=== PATIENT | male | born 1975 | race Caucasian/White ===

== ENCOUNTER 2021-09-07 01:28 | Outpatient (CLI) | payer MEDICAID, SELFPAY ==
[2021-09-07 08:00] LABS: Hemoglobin A1C 5.6 % (<5.7)
[2021-09-07 08:37] LABS: Calculated LDL 108 mg/dL (<100); Cholesterol 173 mg/dL (<200); HDL Cholesterol 51 mg/dL (40-60); Triglyceride 73 mg/dL (<150)
[2021-09-07 18:10] LABS: PSA, Screening 1.3 ng/mL (0.0-2.5)
== END 2021-09-07 01:29 | disposition home or self-care (01) ==
LOC: LBO 01:28
PROVIDERS: PCP Family Medicine; Visit Provider Family Medicine
DX: E78.5 Hyperlipidemia, unspecified (principal); R73.9 Hyperglycemia, unspecified; Z12.5 Encounter for screening for malignant neoplasm of prostate
CPT/HCPCS: 36415; 80061; 84153; 83036

== ENCOUNTER 2021-10-05 13:34 | Outpatient (CLI) | payer MEDICAID, SELFPAY ==
--- NOTE | 2021-10-05 13:15 | DI.RAD_ITS ---
Exam(s) XR SHOULDER LT COMPLETE 2+V EXAM: XR SHOULDER LT COMPLETE 2+V CLINICAL HISTORY: LEFT SHOULDER PAIN. TECHNIQUE: 2D digital imaging was performed of the left shoulder. Two images were obtained. AP and axillary views were obtained. COMPARISON: No exams were available for comparison FINDINGS: BONES: No acute fracture is present. No bony destructive lesion is seen. JOINTS: No dislocation present. Mild degenerative changes are seen at the acromioclavicular joint. SOFT TISSUE: Normal. 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 DATA REPOSITORY: RADIATION DOSE DELIVERED:
--- NOTE | 2021-10-05 13:15 | DI.RAD_ITS ---
Exam(s) XR SHOULDER RT COMPLETE 2+V EXAM: XR SHOULDER RT COMPLETE 2+V CLINICAL HISTORY: RIGHT SHOULDER PAIN. TECHNIQUE: 2D digital imaging was performed of the right shoulder. Two images were obtained. AP an d axillary views were obtained. COMPARISON: No exams were available for comparison FINDINGS: BONES: No acute fracture is present. No bony destructive lesion is seen. JOINTS: No dislocation present. Mild degenerative changes of the right AC joint. SOFT TISSUE: Normal. IMPRESSION: Mild DJD of the right AC joint. DATA REPOSITORY: RADIATION DOSE DELIVERED:
== END 2021-10-05 13:35 | disposition home or self-care (01) ==
LOC: DIORS 13:34
PROVIDERS: PCP Family Medicine; Referring Provider Family Medicine; Visit Provider Student in an Organized Health Care Education/Training Program
DX: M25.511 Pain in right shoulder (principal); M25.512 Pain in left shoulder; M19.011 Primary osteoarthritis, right shoulder; M19.012 Primary osteoarthritis, left shoulder
CPT/HCPCS: 73030

== ENCOUNTER 2022-08-17 01:05 | Outpatient (CLI) | payer MEDICAID, SELFPAY ==
--- NOTE | 2022-08-17 11:18 | DI.US_ITS ---
APPROVED REPORT EXAM: Comprehensive 2D, Doppler, and color-flow Echocardiogram Patient Location: Out-Patient Wire Spring Relay Adjuster: Maddy Garcia RDCS (AE) Indications: Heart murmur, HTN, Smoker Other Information Study Quality: Adequate Conclusion Normal left ventricular wall thickness and chamber size. Estimated ejection fraction is 60%. Wall m otion is normal Normal right ventricular size and systolic function Both atria are normal in size There is no structural or hemodynamically significant valvular disease Estimated right ventricular systolic pressure is 21 mmHg Mildly dilated ascending aorta measuring 3.68 cm Wall motion Left Ventricle The left ventricle is normal size. The left ventricular systolic function is normal. The left ventric ular ejection fraction is within the normal range. There is normal left ventricular wall thickness. T here is normal LV segmental wall motion. There is no ventricular septal defect visualized. LVEF is 60 %. Right Ventricle The right ventricle is normal size. The right ventricular systolic function is normal. The RVSP is 21 .1 mmHg. Atria The left atrium size is normal. The right atrium size is normal. The interatrial septum is intact wit h no evidence for an atrial septal defect. Aortic Valve The aortic valve is normal in structure. Aortic valve is trileaflet. There is no aortic valvular sten osis. No aortic regurgitation is present. Mitral Valve The mitral valve is normal in structure. No evidence of mitral valve stenosis. Trace mitral regurgita tion. Tricuspid Valve The tricuspid valve is normal in structure. There is no tricuspid valve stenosis. Trace tricuspid reg urgitation. Pulmonic Valve The pulmonary valve is normal in structure. There is no pulmonic valvular stenosis. Trace pulmonic re gurgitation. Great Vessels The aortic root is normal in size. The ascending aorta is mildly dilated. The ascending aorta is bor derline dilated. IVC is normal in size and collapses >50% with inspiration. Pericardium There is no pericardial effusion. 2D Dimensions IVSD d PLAX 0.96 cm M: 0.6-1.2 LV Vol A2C d MOD 142.0 mL LVPW d PLAX 0.95 cm M: 0.6 - 1.2 LV Vol A4C d MOD 148.8 mL LVID d PLAX 5.54 cm M: 4.2 - 5.8 LA vol/ BSA A2C s A-L 25.4 mL/m2 LVDs 3.60 cm M: 2.5 - 4.0 LA vol/ BSA A4C s A-L 16.9 mL/m2 Ao Root d 3.32 cm M: 3.1 - 3.7 LA Vol/ BSA Biplane s A-L 21.1 mL/m2 RA Area A4C 14.91 cm2 LA Area A4C s MOD 15.55 cm2 RA Vol/ BSA A4C s A-L 18.2 mL/m2 LA Area A2C s MOD 18.70 cm2 Ao Asc Diam d 3.68 cm M: 2.6 - 3.4 LV EF A4C MOD 60.7 % LV EF Teichholz 62.9 % LV EF A2C MOD 60.5 % LVEF ([employer]) 61.34 % M: 52 - 72 LV EF Biplane MOD 61.3 % LV Volume 108.56 mL M: 62 - 150 SV 90.92 mL LV Volume Index 50.49 mL/m2 M: 34 - 74 SV Index 42.27 mL/m2 LV Vol Biplane MOD 148.2 mL FS 34.45 % M-Mode TAPSE 2.48 cm (M/F) >1.7 LV Diastology MV E' medial 0.125 (>0.07 m/s) E/A Ratio 1.2 LV E/e MED 7.50 (<14) MV E Vmax 0.94 (0.4-1.3 m/s) MV E' lateral 0.142 (>0.1 m/s) MV A Vmax 0.80 (0.4-1.3 m/s) LV E/e LAT 6.60 (<14) MV E/A Ratio 1.14 MV E/E' medial 7.52 MV E/E' lateral 6.61 Aortic Valve LVOT Area 3.14 cm2 AoV Area Vmax 2.40 cm2 LVOT Vmax 1.57 m/s AoV Area/ BSA (Vmax) 1.12 cm2/m2 LVOT Mean Baldev. 1.04 m/s RASTA Mean Baldev. 2.32 cm2 LVOT Peak Grad 9.9 mmHg RASTA Mean Baldev. Index 1.08 cm2/m2 LVOT Mean Grad 5.1 mmHg LVOT VTI 0.336 m LVOT Diam s 1.95 cm AoV Vmax 2.05 m/s Velocity Ratio 0.77 AoV Mean Baldev. 1.41 m/s AoV Peak Grad 16.9 mmHg LVOT SV 105.56 mL AoV Mean Grad 9.0 mmHg AoV VTI 0.389 m AoV Area VTI 2.71 cm2 AoV Area/ BSA (VTI) 1.26 cm/m2 Mitral Valve MV DT 221 (160-240 msec) MV PHT 64 msec MV Area PHT 3.43 cm2 MV VTI 0.290 m MV Area VTI 3.64 (4.0-6.0 cm2) Pulmonary Valve PV Vmax 1.33 (0.5-1.5 m/s) RVOT Peak Gr. 3.26 mmHg PV Peak Grad 7.1 mmHg RVOT Mean Gr. 1.80 mmHg PV Mean Grad 3.6 mmHg RVOT VTI 0.193 m PV VTI 0.271 m RVOT Vmax 0.90 m/s Tricuspid Valve TR Peak Grad 18.0 mmHg TR Vmax 2.13 m/s RA Pressure 3.00 mmHg RVSP (TR) 21.1 mmHg
== END 2022-08-17 01:25 ==
LOC: DI 01:05
PROVIDERS: PCP Family Medicine; Visit Provider Surgery
DX: I10 Essential (primary) hypertension (principal); R01.1 Cardiac murmur, unspecified; Z87.891 Personal history of nicotine dependence
CPT/HCPCS: 93306

== ENCOUNTER 2023-02-03 16:50 | Outpatient (CLI) | payer MEDICAID, SELFPAY ==
[2023-02-03 10:22] LABS: Hemoglobin A1C 5.8 % (<5.7)
[2023-02-03 10:36] LABS: Anion Gap 9.1 mmol/L (3-11); BUN 12 mg/dL (7-18); CO2 28.9 mmol/L (21.0-32.0); CREATININE 0.9 mg/dL (0.70-1.30); Chloride 102 mmol/L (98-107); Estimated GFR 105.35 (mL/min/1.73m2); Glucose 139 mg/dL (74-106); Potassium 3.7 mmol/L (3.5-5.1); Sodium 140 mmol/L (136-145)
== END 2023-02-03 16:51 | disposition home or self-care (01) ==
LOC: LBO 16:51
PROVIDERS: PCP Family Medicine; Visit Provider Family Medicine
DX: I10 Essential (primary) hypertension (principal); E87.1 Hypo-osmolality and hyponatremia; R73.9 Hyperglycemia, unspecified; Z12.5 Encounter for screening for malignant neoplasm of prostate; E66.3 Overweight
CPT/HCPCS: 36415; 80048; 84153; 83036

== ENCOUNTER 2023-09-19 08:50 | Outpatient (CLI) | payer MEDICAID, SELFPAY ==
[2023-09-19 12:27] LABS: Anion Gap 9.8 mmol/L (3-11); BUN 14 mg/dL (7-18); CO2 27.2 mmol/L (21.0-32.0); CREATININE 0.8 mg/dL (0.70-1.30); Calcium 9.2 mg/dL (8.5-10.1); Chloride 102 mmol/L (98-107); Estimated GFR 109.17 (mL/min/1.73m2); Glucose 135 mg/dL (74-106); Potassium 3.6 mmol/L (3.5-5.1); Sodium 139 mmol/L (136-145)
[2023-09-19 19:14] LABS: HIV-1/2 Ag & Ab Screen Negative (Negative)
[2023-09-19 20:44] LABS: Hepatitis C Ab w Rflx HCV PCR Negative (Negative)
== END 2023-09-19 08:51 | disposition home or self-care (01) ==
LOC: LOS 08:51
PROVIDERS: PCP Family Medicine; Referring Provider Family Medicine; Visit Provider Family Medicine
DX: E11.51 Type 2 diabetes mellitus with diabetic peripheral angiopathy without gangrene (principal); Z11.59 Encounter for screening for other viral diseases; Z00.00 Encounter for general adult medical examination without abnormal findings; E87.1 Hypo-osmolality and hyponatremia
CPT/HCPCS: 36415; 80048; 86803; 87389; 83036

== ENCOUNTER → 2023-10-06 00:30 | Outpatient (CLI) | payer MEDICAID, SELFPAY ==
--- NOTE | 2023-10-06 07:00 | DI.US_ITS ---
APPROVED REPORT EXAM: Comprehensive 2D, Doppler, and color-flow Echocardiogram Patient Location: Out-Patient Starch Crab: Maddy Garcia RDCS (AE) Indications: Reassess dilated ascending aorta Other Information Study Quality: Adequate Conclusion Normal left ventricular wall thickness and chamber size EF is 60 %. Wall motion is normal Normal right ventricular size and function Both atria are normal in size There is no structural or hemodynamically significant valvular disease Mildly dilated ascending aorta, 3.76 cm. Previous measurement was 3.68 cm in 2022 Wall motion Left Ventricle The left ventricle is normal size. The left ventricular systolic function is normal. The left ventric ular ejection fraction is within the normal range. There is normal left ventricular wall thickness. T here is normal LV segmental wall motion. There is no ventricular septal defect visualized. LVEF is 60 %. Right Ventricle The right ventricle is normal size. The right ventricular systolic function is normal. Atria The left atrium size is normal. The right atrium size is normal. The interatrial septum is intact wit h no evidence for an atrial septal defect. Aortic Valve The aortic valve is normal in structure. Aortic valve is trileaflet. There is no aortic valvular sten osis. No aortic regurgitation is present. Mitral Valve The mitral valve is normal in structure. No evidence of mitral valve stenosis. Trace mitral regurgita tion. Tricuspid Valve The tricuspid valve is normal in structure. There is no tricuspid valve stenosis. Trace tricuspid reg urgitation. Unable to assess PA pressure. Pulmonic Valve The pulmonary valve is normal in structure. There is no pulmonic valvular stenosis. There is no pulmo emir valvular regurgitation. Great Vessels The aortic root is normal in size. The ascending aorta is mildly dilated. Aortic arch is normal in ca liber. IVC is normal in size and collapses >50% with inspiration. Pericardium There is no pericardial effusion. 2D Dimensions IVSD d PLAX 0.93 cm M: 0.6-1.2 Ao Root d 3.03 cm M: 3.1 - 3.7 LVPW d PLAX 0.88 cm M: 0.6 - 1.2 Ao Asc Diam d 3.76 cm M: 2.6 - 3.4 LVID d PLAX 5.21 cm M: 4.2 - 5.8 LVDs 3.57 cm M: 2.5 - 4.0 LV EF Teichholz 59.2 % FS 31.61 % LV EDV (Teich) 130.3 mL LV ESV (Teich) 53.2 mL Auto EF LV EDV A4C 167.5 mL LV EDV A2C 165.5 mL LV EDV BP 172.2 mL LV ESV A4C 71.1 mL LV ESV A2C 69.6 mL LV ESV BP 70.4 mL LVEF(%) A4C 57.6 % LVEF(%) A2C 58.0 % LVEF(%) BP 59.1 % LV SV A4C 96.4 ml LV SV A2C 95.9 ml LV SV BP 101.8 ml LV CO A4C 6.5 L/min LV CO A2C 6.8 L/min LV CO BP 6.7 L/min HR A4C 67.80 BPM HR A2C 71.01 BPM LV EDV Index (BP) LA Volume LA Length A4C 5.4 cm LA Length A2C 5.3 cm LA Area A4C s 17.37 cm2 LA Area A2C s 22.38 cm2 LA Vol A4C A-L 47.76 mL LA Vol A2C A-L 80.77 mL LA Vol Biplane A-L 62.7 mL LA Vol/BSA A4C A-L LA Vol/BSA A2C A-L LA Vol/BSA BP A-L 28.0 mL/m2 LA Vol A4C MOD 43.9 mL LA Vol A2C MOD 75.8 mL LA Vol BP MOD 57.7 mL RA Volume RA Area A4C 16.8 cm2 RA ESV A4C (A-L) 48.9mL RA Vol/BSA A4C A-L RA Length A4C 4.9 cm RA ESV A4C (MOD) 45.1mL LV Diastology MV E Vmax 0.84 (0.4-1.3 m/s) MV A Vmax 0.75 (0.4-1.3 m/s) E/A Ratio 1.1 Aortic Valve AoV Vmax 1.62 m/s LVOT Vmax 1.24 m/s AoV Peak Grad 10.5 mmHg LVOT Peak Grad 6.1 mmHg AoV Area (Vmax) 2.66 cm2 LVOT VTI 0.249 m AoV VTI 0.357 m LVOT Mean Grad 3.6 mmHg AoV Mean Baldev. 1.16 m/s LVOT SV 86.79 mL AoV Mean Grad 6.1 mmHg LVOT Diam s 2.10 cm AoV Area (VTI) 2.43 cm2 Velocity Ratio 0.77 Mitral Valve MV DT 179 (160-240 msec) MV Vmax TIPS 0.86 m/s MV Mean Grad 1.2 (<2mmHg) MV VTI 0.295 m Pulmonary Valve PV Vmax 1.12 (0.5-1.5 m/s) RVOT Vmax 0.84 m/s PV Peak Grad 5.0 mmHg RVOT Peak Gr. 2.8 mmHg PV Mean Baldev 0.77 m/s RVOT VTI 0.191 m PV Mean Grad 2.8 mmHg RVOT Mean Gr. 1.6 mmHg Tricuspid Valve RA Pressure 3.00 mmHg
== END ==
PROVIDERS: PCP Family Medicine; Visit Provider Family Medicine
DX: I71.21 Aneurysm of the ascending aorta, without rupture (principal)
CPT/HCPCS: 93306

== ENCOUNTER 2024-10-29 00:29 | Outpatient (CLI) | payer MEDICAID, SELFPAY ==
--- NOTE | 2024-10-29 08:30 | DI.US_ITS ---
APPROVED REPORT EXAM: Comprehensive 2D, Doppler, and color-flow Echocardiogram Patient Location: Out-Patient Finger Cobbler: Mynor Bansal RDCS (AE) Indications: Reassess ascending aortic aneurysm Conclusion Normal left ventricular wall thickness and chamber size. Ejection fraction is 65%. Wall motion is n ormal Normal right ventricular size and function Both atria are normal in size There is no structural or hemodynamically significant valvular disease Mildly dilated ascending aorta measuring 3.79 cm Wall motion Left Ventricle The left ventricle is normal size. The left ventricular systolic function is normal. The left ventric ular ejection fraction is within the normal range. There is normal left ventricular wall thickness. T here is normal LV segmental wall motion. There is no ventricular septal defect visualized. LVEF is 65 %. Right Ventricle The right ventricle is normal size. The right ventricular systolic function is normal. Atria The left atrium size is normal. The right atrium size is normal. The interatrial septum is intact wit h no evidence for an atrial septal defect. Aortic Valve The aortic valve is normal in structure. Aortic valve is trileaflet. There is no aortic valvular sten osis. No aortic regurgitation is present. Mitral Valve The mitral valve is normal in structure. No evidence of mitral valve stenosis. Trace mitral regurgita tion. Tricuspid Valve The tricuspid valve is normal in structure. There is no tricuspid valve stenosis. Trace tricuspid reg urgitation. Pulmonic Valve The pulmonary valve is normal in structure. There is no pulmonic valvular stenosis. There is no pulmo emir valvular regurgitation. Great Vessels The ascending aorta is mildly dilated. Aortic arch is normal in caliber. IVC is normal in size and co llapses >50% with inspiration. Pericardium There is no pericardial effusion. 2D Dimensions IVSD d PLAX 1.08 cm M: 0.6-1.2 Ao Root d 2.96 cm M: 3.1 - 3.7 LVPW d PLAX 0.89 cm M: 0.6 - 1.2 Ao Asc Diam d 3.79 cm M: 2.6 - 3.4 LVID d PLAX 4.73 cm M: 4.2 - 5.8 LVDs 3.03 cm M: 2.5 - 4.0 LV EF Teichholz 65.4 % FS 35.90 % LV EDV (Teich) 103.7 mL LV ESV (Teich) 35.9 mL Stroke Vol Index (Teich) 31.87 M-Mode TAPSE 2.79 cm (M/F) >1.7 Auto EF LV EDV A4C 112.8 mL LV EDV A2C 177.2 mL LV EDV BP 139.0 mL LV ESV A4C 40.0 mL LV ESV A2C 62.6 mL LV ESV BP 50.2 mL LVEF(%) A4C 64.6 % LVEF(%) A2C 64.7 % LVEF(%) BP 63.9 % LV SV A4C 72.9 ml LV SV A2C 114.6 ml LV SV BP 88.8 ml LV CO A4C 4.3 L/min LV CO A2C 6.6 L/min LV CO BP 5.4 L/min HR A4C 58.62 BPM HR A2C 57.15 BPM LV EDV Index (BP) LA Volume LA Length A4C 5.1 cm LA Length A2C 4.9 cm LA Area A4C s 12.81 cm2 LA Area A2C s 12.55 cm2 LA Vol A4C A-L 27.42 mL LA Vol A2C A-L 27.50 mL LA Vol Biplane A-L 28.1 mL LA Vol/BSA A4C A-L LA Vol/BSA A2C A-L LA Vol/BSA BP A-L 13.2 mL/m2 LA Vol A4C MOD 25.8 mL LA Vol A2C MOD 26.6 mL LA Vol BP MOD 26.7 mL RA Volume RA Area A4C 12.9 cm2 RA ESV A4C (A-L) 29.0mL RA Vol/BSA A4C A-L RA Length A4C 4.9 cm RA ESV A4C (MOD) 28.0mL LV Diastology MV E' medial 0.118 (>0.07 m/s) MV E Vmax 0.88 (0.4-1.3 m/s) MV E/E' MED 7.48 (<14) MV A Vmax 0.65 (0.4-1.3 m/s) MV E' lateral 0.157 (>0.1 m/s) E/A Ratio 1.4 MV E/E' LAT 5.63 (<14) MV E' Average 0.137 m/s MV E/E'(average) 6.42 Aortic Valve AoV Vmax 1.31 m/s LVOT Vmax 1.19 m/s AoV Peak Grad 6.9 mmHg LVOT Peak Grad 5.6 mmHg AoV Area (Vmax) 2.76 cm2 LVOT VTI 0.254 m AoV VTI 0.312 m LVOT Mean Grad 3.0 mmHg AoV Mean Baldev. 0.95 m/s LVOT SV 77.54 mL AoV Mean Grad 4.1 mmHg LVOT Diam s 1.95 cm AoV Area (VTI) 2.49 cm2 AV Regurg Peak Gr. 6.89 mmHg Velocity Ratio 0.91 Mitral Valve MV DT 221 (160-240 msec) Pulmonary Valve PV Vmax 1.12 (0.5-1.5 m/s) RVOT Vmax 0.74 m/s PV Peak Grad 5.1 mmHg RVOT Peak Gr. 2.2 mmHg PV Mean Baldev 0.78 m/s RVOT VTI 0.173 m PV Mean Grad 2.8 mmHg RVOT Mean Gr. 1.2 mmHg Tricuspid Valve TV S' 0.13 m/s
== END 2024-10-29 00:49 ==
PROVIDERS: PCP Family Medicine; Visit Provider Internal Medicine Cardiovascular Disease
DX: I71.21 Aneurysm of the ascending aorta, without rupture (principal)
CPT/HCPCS: 93306